=== PATIENT | female | born 1970 | race Caucasian/White ===

== ENCOUNTER 2020-06-24 11:05 | Outpatient (REF) | payer OTHER, SELFPAY ==
[2020-06-24 13:08] LABS: COVID-19 Test Negative (Negative)
== END 2020-06-24 11:06 | disposition home or self-care (01) ==
LOC: HO.LAB 11:05
PROVIDERS: Visit Provider Internal Medicine
DX: Z20.822 Contact with and (suspected) exposure to COVID-19 (principal)
CPT/HCPCS: 36415; 87635; C9803

== ENCOUNTER 2021-07-25 11:53 | Outpatient (REF) | payer OTHER, SELFPAY ==
--- NOTE | ~2021-07-25 | XR_ITS ---
EXAMINATION: XR CHEST CLINICAL INFORMATION: Cough. COMPARISON: Chest 02/04/2019. TECHNIQUE: Frontal view of the chest was obtained. FINDINGS: The lungs are expanded with elevated left hemidiaphragm. There is plate-like atelectasis in the lingula. Rest of the lungs are clear. Heart size and pulmonary vascularity is normal. There is mild spondylosis of dorsal spine. No lytic process seen. XR/XR chest 1V IMPRESSION: Lingular atelectasis. No acute process seen.
[2021-07-25 12:20] LABS: MANUAL DIFF FLAG NO
[2021-07-25 12:36] LABS: Basophils Percent Auto 0.3 % (0-2); Eosinophils Absolute Auto 0.1 X10*3/uL (0.0-0.4); Eosinophils Percent Auto 1.4 % (0-4); Hemoglobin 16.4 g/dl (12.0-16.0); Imm Gran Abs Auto 0.02 X10*3/uL (0.00-0.03); Imm Gran Pct Auto 0.3 % (0.0-0.4); Lymphocytes Absolute Auto 2.4 X10*3/uL (1.2-4.9); Lymphocytes Percent Auto 35.6 % (20-40); Mean Corpuscular HGB Conc 33.5 g/dl (31.0-35.0); Mean Corpuscular Hemoglobin 28.5 pg (27.0-33.0); Mean Corpuscular Volume 85.1 fL (80.0-98.0); Mean Platelet Volume 10.7 fL (9.4-12.3); Monocytes Absolute Auto 0.3 X10*3/uL (0.1-1.2); Monocytes Percent Auto 4.8 % (2-11); Neutrophils Absolute Auto 3.8 x10*3/uL (2.0-8.3); Neutrophils Percent Auto 57.6 % (45-73); Platelet Count 220 X10*3/uL (160-400); Red Blood Count 5.76 X10*6/uL (4.20-5.50); White Blood Count 6.7 X10*3/uL (4.8-10.8)
[2021-07-25 13:07] LABS: Alanine Aminotransferase 29 U/L (0-31); Albumin Level 4.4 g/dL (3.5-5.0); Alkaline Phosphatase 111 U/L (39-117); Anion Gap 17 (12-20); Aspartate Amino Transferase 20 U/L (5-31); Bilirubin Total 0.3 mg/dL (0.0-1.0); Blood Urea Nitrogen 11 mg/dL (9-16); C Reactive Protein 0.54 mg/dL (< or = 0.50); Calcium 10.3 mg/dL (8.4-10.2); Carbon Dioxide 21 mmol/L (22-29); Chloride 105 mmol/L (96-108); Estimated Glomerular Filt Rate > 60; Glucose Random 94 mg/dL (60-115); Potassium 4.7 mmol/L (3.3-5.1); Sodium 138 mmol/L (135-145); Total Protein 8.1 g/dL (6.5-8.0)
[2021-07-25 13:26] LABS: Erythrocyte Sedimentation Rate 10 MM/HR (0-20)
== END 2021-07-25 11:54 | disposition home or self-care (01) ==
LOC: HO.XRAY 11:53
PROVIDERS: PCP Physician Assistant; Visit Provider Nurse Practitioner Acute Care
DX: R05.9 Cough, unspecified (principal); R68.89 Other general symptoms and signs
CPT/HCPCS: 36415; 71045; 80053; 85025; 85652; 86140

== ENCOUNTER → 2021-08-18 12:23 | Outpatient (BNVA) | payer OTHER, SELFPAY | PROVIDERS: PCP Physician Assistant; Visit Provider Internal Medicine Pulmonary Disease | DX: R05.3 Chronic cough (principal); R06.00 Dyspnea, unspecified; R93.89 Abnormal findings on diagnostic imaging of other specified body structures; J30.9 Allergic rhinitis, unspecified | CPT/HCPCS: 99202 ==

== ENCOUNTER → 2021-08-29 14:57 | Outpatient (REF) | payer OTHER, SELFPAY | LOC: HO.SL 14:57 | PROVIDERS: PCP Physician Assistant; Visit Provider Physician Assistant | DX: G47.33 Obstructive sleep apnea (adult) (pediatric) (principal) | CPT/HCPCS: 95806 ==

== ENCOUNTER 2021-10-13 10:39 | Emergency (ER) | payer OTHER, SELFPAY ==
--- NOTE | ~2021-10-13 | CT_ITS ---
EXAMINATION: NONCONTRAST HEAD CT NONCONTRAST MAXILLOFACIAL CT NONCONTRAST CERVICAL SPINE CT INDICATION INFORMATION: Syncope. COMPARISON: No similar priors. TECHNIQUE: Separate noncontrast CT examinations of the head, maxillofacial bones, and cervical spine were performed. Coronal and sagittal images were created for each examination at the technologist workstation. This CT examination was performed using dose optimization techniques as appropriate, variously including the following: *Automated exposure control *Adjustment of mA and/or kV according to patient size (this includes techniques or standardized protocols for targeted exams where dose is matched to indication/reason for exam; i.e. extremities or head) *Use of iterative reconstruction technique DLP: 706, 433 and 312 mGy-cm FINDINGS: Head: There is no evidence of acute intracranial hemorrhage or territorial infarction. No abnormal mass effect or midline shift is seen. [place] to white matter differentiation is well preserved. No extra-axial fluid collections are identified. No hydrocephalus. No significant volume loss. There is no abnormal attenuation within the brain parenchyma. Small right frontal scalp hematoma. No calvarial fracture. The mastoid air cells are well aerated. Maxillofacial: No acute maxillofacial fractures are seen. Mucus retention cysts in the inferior left maxillary sinus and left frontal sinus. No air-fluid level. The mandibular heads are well-seated in the condylar fossa. The orbits demonstrate a normal appearance bilaterally. The globes are intact, and there are no suspicious findings to suggest retrobulbar hemorrhage. Cervical spine: There is mild likely degenerative anterolisthesis of C2 on C3 and C4 on C5. The atlantoaxial and atlantooccipital articulations are intact. There is multilevel cervical spondylosis with more robust facet arthropathy on the left side at the level of C4-C5. There is asymmetric widening of the left transverse process at the level of C4 (5:181) likely congenital. No evidence of acute fracture. No prevertebral soft tissue swelling. Evaluation of the lungs is limited due to motion, however there appears to be multifocal groundglass attenuation of the parenchyma. Normal appearance of the thyroid gland. Nonspecific fairly symmetric bilateral enlarged cervical lymph nodes, likely reactive. CT/CT cervical spine wo con IMPRESSION: 1. Small right frontal scalp hematoma. No acute intracranial abnormality. 2. No acute maxillofacial fracture. 3. No acute cervical spine fracture or malalignment. 4. Query multifocal hazy attenuation of the lungs, which are suboptimally assessed due to motion. Recommend correlation with a chest radiograph if clinically deemed appropriate.
--- NOTE | ~2021-10-13 | XR_ITS ---
EXAMINATION: XR CHEST CLINICAL INFORMATION: Chest pain COMPARISON: 07/25/2021 TECHNIQUE: Frontal view of the chest was obtained. FINDINGS: The lungs are well expanded. Blunting at the left costophrenic angle noted, similar to the previous study. Given the chronicity of the finding this likely represents pleural thickening. No consolidation or edema. No pneumothorax. The cardiomediastinal silhouette is within normal limits. No acute osseous abnormality. XR/XR chest 1V IMPRESSION: Chronic blunting at the left costophrenic angle. This is likely pleural thickening. No acute pulmonary finding.
[2021-10-13 10:42] VITALS: BP 156/93; PULSE 108; RESP 18; TEMP 36.8; O2SAT 95; BMI 29.2
--- NOTE | 2021-10-13 10:45 | ECG_ITS ---
Test Reason : cp/?syncope Blood Pressure : / mmHG Vent. Rate : 091 BPM Atrial Rate : 091 BPM P-R Int : 150 ms QRS Dur : 082 ms QT Int : 342 ms P-R-T Axes : 019 016 038 degrees QTc Int : 420 ms Normal sinus rhythm Normal ECG When compared with ECG of 11-SEP-2018 20:54, No significant change was found Referred By: Generic ED Physician Electronically Signed By:JOANNA GARCIA
[2021-10-13] MEDS: Acetaminophen 325 MG TABLET 650 MG PO (10:47)
[2021-10-13 11:12] LABS: Hematocrit 43.7 % (37.0-47.0); Hemoglobin 15.3 g/dl (12.0-16.0); Mean Corpuscular Volume 91.4 fL (80.0-98.0); Platelet Count 309 X10*3/uL (160-400); Red Blood Count 4.78 X10*6/uL (4.20-5.50); Red Cell Distribution Width 13.1 % (11.0-16.0); White Blood Count 11.6 X10*3/uL (4.8-10.8)
[2021-10-13 11:29] LABS: Anion Gap 16 (12-20); Blood Urea Nitrogen 21 mg/dL (9-16); Calcium 9.3 mg/dL (8.4-10.2); Carbon Dioxide 24 mmol/L (22-29); Chloride 102 mmol/L (96-108); Creatinine Clr Calc Pharmacy 49.7; Estimated Glomerular Filt Rate 47; Glucose Random 151 mg/dL (60-115); Potassium 4.1 mmol/L (3.3-5.1); Sodium 138 mmol/L (135-145)
[2021-10-13 11:37] LABS: B Type Natriuretic Peptide 14 pg/mL (<100); Troponin-I High Sensitivity 6.5 ng/L (<3.5-17.0)
--- NOTE | 2021-10-13 13:12 | ED_ITS ---
HPI - Chest Pain General Chief Complaint: Chest Pain Stated Complaint: collapsed after work Time Seen by Provider: 10/13/21 11:03 Source: patient Mode of arrival: ambulatory History of Present Illness HPI narrative: 51-year-old female presents with complaints of an unwitnessed syncopal episode that she states occurred as she was leaving work this morning. 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 She states that when she woke she felt dizzy and was a little bit nauseous. Patient does endorse that she drinks alcohol and uses IV drugs as well as marijuana. Otherwise, she denies any heart palpitations, shortness of breath prior to passing out Related Data Previous Rx's Medication Instructions Recorded pantoprazole 40 mg tablet,delayed 40 mg PO DAILY 90 days #90 tabs 07/18/21 release gabapentin 600 mg tablet 600 mg PO TID 30 days #90 tabs 07/20/21 cetirizine 10 mg tablet 10 mg PO DAILY #90 tabs 08/10/21 nicotine 21 mg/24 hr daily 1 patch transdermal DAILY 14 days 08/10/21 transdermal patch #14 ea fluticasone propionate 50 1 spray intranasal BID #16 grams 08/23/21 mcg/actuation nasal spray,suspension (Flonase Allergy Relief) miscellaneous medical supply 1 ea miscellaneous .nightly 99 09/07/21 days #1 ea CPAP (CPAP Machine/Device) #1 ea 10/10/21 Allergies Allergy/AdvReac Type Severity Reaction Status Date / Time No Known Allergies Allergy Verified 08/18/21 12:57 [No Known Allergies*] Review of Systems Review of Systems: Pertinent positives and negatives as stated in HPI 10 point review of systems is otherwise negative. [facility] Past Medical History Source: nursing notes reviewed Medical History Anxiety GERD (gastroesophageal reflux disease) History of heroin use Surgical History No pertinent past surgical history Family History Family History Father Asthma Diabetes Hypertension CHF (congestive heart failure) Substance use disorder Mother No problems noted. Paternal Grandfather Substance use disorder Family/Other Substance use disorder Other Mental health disorder Social History Social History Housing: Apartment Alcohol intake: never Patient Tobacco Use Status: Current everyday Tobacco user Tobacco use type: Cigarette Cigarettes Per Day: 5 e-Cigarette/Vaping Use: Currently Using Advance Directives: Yes Advance Directives Information Provided: Yes Advance Directives on File: No service: No Current occupational status: employed Cognitive needs: No Hearing needs: No Vision needs: Yes Physical Exam Vital Signs: Vital Signs: Last Vital Signs Temp 98.2 F 10/13/21 10:42 Pulse 83 10/13/21 16:41 Resp 18 10/13/21 16:41 BP 151/80 H 10/13/21 16:41 Pulse Ox 95 10/13/21 16:41 O2 Del Method 10/13/21 16:41 BMI result Body Mass Index 29.2 VITAL SIGNS: Reviewed. GENERAL: Well developed, well nourished, in no acute distress. HEAD: Normocephalic/contusion to right forehead and right infraorbital EYES: PERRLA, EOMI without palsies EARS: Ext canals without abnormality, TMs non-bulging and non-erythematous NOSE: Nares patent bilateral OROPHARYNX: no oral lesions noted, posterior pharynx clear and non-erythematous without noted tonsillar enlargement/erythema/exudates NECK: Supple, no adenopathy LUNGS: Normal breath sounds. No adventitious sounds or accessory muscle use. SpO2<95> CARDIOVASCULAR: Regular rate and rhythm without noted murmurs, no JVD or lower extremity edema. ABDOMEN: Soft, non-tender, non-distended with bowel sounds. MUSCULOSKELETAL: No tenderness, deformities, or effusions noted on gross inspec tion. EXTREMITIES: No cyanosis, clubbing or edema. SKIN: Inspection of the skin reveals no rashes, stigmata of IV drug use NEUROLOGIC: Alert and oriented x 4. Strength and sensation to light touch were grossly intact x 4. Course Course Course Narrative: 31-year-old female with history and clinical presentation consistent with unwitnessed syncopal episode. On review of all investigations serial troponins are flat, there are no acute EKG changes, no evidence of infection or anemias (the leukocytosis is felt to be reactive in nature). All imaging is negative for acute findings. Suspect that patient's ?syncopal episode? may have been associated with volume status or possible drug related. Otherwise patient has remained hemodynamically stable throughout and is otherwise stable for discharge to home. MDM - Chest Pain Lab Data Result diagrams: 10/13/21 10:56 10/13/21 10:56 Labs: Lab Results 10/13/21 10/13/21 10/13/21 Range/Units 10:56 10:56 10:56 WBC 11.6 H (4.8-10.8) X10*3/uL RBC 4.78 (4.20-5.50) X10*6/uL Hgb 15.3 (12.0-16.0) g/dl Hct 43.7 (37.0-47.0) % MCV 91.4 (80.0-98.0) fL MCH 32.0 (27.0-33.0) pg MCHC 35.0 (31.0-35.0) g/dl RDW 13.1 (11.0-16.0) % Plt Count 309 D (160-400) X10*3/uL MPV 10.0 (9.4-12.3) fL Absolute Nucleated RBC 0.000 (0.0-0.012) X10*3/uL Nucleated RBC % (auto) 0.0 (0.0-0.2) /100WBC D-Dimer High Sensitivty NG/ML Sodium 138 (135-145) mmol/L Potassium 4.1 (3.3-5.1) mmol/L Chloride 102 (96-108) mmol/L Carbon Dioxide 24 (22-29) mmol/L Anion Gap 16 (12-20) BUN 21 H D (9-16) mg/dL Creatinine 1.20 (0.5-1.4) mg/dL Estim Creat Clear Calc 49.7 Estimated GFR 47 Random Glucose 151 H (60-115) mg/dL Calcium 9.3 D (8.4-10.2) mg/dL Troponin I High Sens 6.5 (<3.5-17.0) ng/L B-Natriuretic Peptide 14 (<100) pg/mL 10/13/21 10/13/21 Range/Units 12:36 15:50 WBC (4.8-10.8) X10*3/uL RBC (4.20-5.50) X10*6/uL Hgb (12.0-16.0) g/dl Hct (37.0-47.0) % MCV (80.0-98.0) fL MCH (27.0-33.0) pg MCHC (31.0-35.0) g/dl RDW (11.0-16.0) % Plt Count (160-400) X10*3/uL MPV (9.4-12.3) fL Absolute Nucleated RBC (0.0-0.012) X10*3/uL Nucleated RBC % (auto) (0.0-0.2) /100WBC D-Dimer High Sensitivty < 150 NG/ML Sodium (135-145) mmol/L Potassium (3.3-5.1) mmol/L Chloride (96-108) mmol/L Carbon Dioxide (22-29) mmol/L Anion Gap (12-20) BUN (9-16) mg/dL Creatinine (0.5-1.4) mg/dL Estim Creat Clear Calc Estimated GFR Random Glucose (60-115) mg/dL Calcium (8.4-10.2) mg/dL Troponin I High Sens 8.3 (<3.5-17.0) ng/L B-Natriuretic Peptide (<100) pg/mL ECG Data ECG #1: Attestation: I personally reviewed and interpreted this ECG as follows: Prior ECG tracings: available for review Interpretation: Normal sinus rhythm, HR-91, no STEMI, WA/QRS/QTC are within normal limits. Discharge Plan Discharge Clinical Impression: Episode of syncope, Active intravenous drug use, Scalp contusion, Contusion of face Patient Disposition: Home, Self-Care Instructions: Syncope (ED), Heat Exhaustion (ED) Additional Instructions: 1. Resume all home medications as prescribed. Increase your fluid hydration, especially with water. 2. Follow-up with your primary care provider in the next 2-3 days. Return to the ER for worsening symptoms. Prescriptions: No Action pantoprazole 40 mg tablet,delayed release (DR/EC) 40 mg PO DAILY 90 Days Qty: 90 3RF fluticasone propionate [Flonase Allergy Relief] 50 mcg/actuation spray,suspension 1 spray intranasal BID Qty: 16 2RF Rx Instructions: administer into each nostril miscellaneous medical supply Misc 1 ea miscellaneous .nightly 99 Days Qty: 1 0RF (DME) CPAP Machine/Device Device See Rx Instructions .Route Qty: 1 0RF Rx Instructions: As directed cetirizine 10 mg tablet 10 mg PO DAILY Qty: 90 1RF nicotine 21 mg/24 hr patch 24 hour 1 patch transdermal DAILY 14 Days Qty: 14 0RF gabapentin 600 mg tablet 600 mg PO TID 30 Days Qty: 90 3RF Referrals: Abhijit Ibarra PA-C [Primary Care Provider] -
[2021-10-13 13:15] LABS: D Dimer High Sensitivity < 150 NG/ML
[2021-10-13 16:31] LABS: Troponin-I High Sensitivity 8.3 ng/L (<3.5-17.0)
[2021-10-13 16:41] VITALS: BP 151/80; PULSE 83; RESP 18; O2SAT 95
== END 2021-10-13 17:01 | disposition home or self-care (01) ==
PROVIDERS: Emergency Provider Student in an Organized Health Care Education/Training Program; PCP Physician Assistant
DX: R55 Syncope and collapse (principal); F19.90 Other psychoactive substance use, unspecified, uncomplicated; S00.03XA Contusion of scalp, initial encounter; S00.83XA Contusion of other part of head, initial encounter; W17.89XA Other fall from one level to another, initial encounter; F17.210 Nicotine dependence, cigarettes, uncomplicated; E66.9 Obesity, unspecified; Z68.29 Body mass index [BMI] 29.0-29.9, adult; Z79.899 Other long term (current) drug therapy; Y93.89 Activity, other specified; Y92.019 Unspecified place in single-family (private) house as the place of occurrence of the external cause; Y99.9 Unspecified external cause status
CPT/HCPCS: 36415; 70450; 70486; 71045; 72125; 80048; 83880; 84484; 85027; 85379; 93005; 99284; 99285

== ENCOUNTER 2021-12-25 09:34 | Emergency (ER) | payer OTHER, SELFPAY ==
--- NOTE | ~2021-12-25 | XR_ITS ---
EXAMINATION: XR CHEST CLINICAL INFORMATION: Pain COMPARISON: Previous chest x-ray most recent September 2021 TECHNIQUE: Frontal view of the chest was obtained. FINDINGS: No significant abnormality is noted involving the heart, lungs, mediastinum, bony thorax or soft tissues. There is slight blunting at the left lateral costophrenic angle unchanged from old exams. XR/XR chest 1V IMPRESSION: No evidence for acute disease in the chest.
[2021-12-25 09:49] VITALS: BP 160/86; PULSE 78; RESP 16; TEMP 36.9; O2SAT 98; BMI 24.0
--- NOTE | 2021-12-25 11:21 | ECG_ITS ---
Test Reason : CP Blood Pressure : / mmHG Vent. Rate : 077 BPM Atrial Rate : 077 BPM P-R Int : 194 ms QRS Dur : 078 ms QT Int : 360 ms P-R-T Axes : 038 026 028 degrees QTc Int : 407 ms Normal sinus rhythm Normal ECG When compared with ECG of 13-OCT-2021 10:47, No significant change was found Referred By: Generic ED Physician Electronically Signed By:DANIEL RIVERA MD
[2021-12-25 12:22] LABS: COVID-19 Test Negative (Negative); IDNOW Serial# 16C4AD1C
--- NOTE | 2021-12-25 14:16 | ED_ITS ---
HPI - Chest Pain General Chief Complaint: Chest Pain Stated Complaint: chest pain Time Seen by Provider: 12/25/21 14:01 Source: patient Mode of arrival: ambulatory History of Present Illness HPI narrative: 51-year-old female who reports remote history polysubstance use presents with complaints of sharp chest pain that is noted at the left anterior chest and she denies any traumatic event preceding this. She also denies any fever, chills, cough, sore throat, recent travel and denies any association with deep inspiration but states that it does change with movement. Otherwise, she denies any or GI symptoms. Related Data Previous Rx's Medication Instructions Recorded pantoprazole 40 mg tablet,delayed 40 mg PO DAILY 90 days #90 tabs 07/18/21 release cetirizine 10 mg tablet 10 mg PO DAILY #90 tabs 08/10/21 nicotine 21 mg/24 hr daily 1 patch transdermal DAILY 14 days 08/10/21 transdermal patch #14 ea fluticasone propionate 50 1 spray intranasal BID #16 grams 08/23/21 mcg/actuation nasal spray,suspension (Flonase Allergy Relief) miscellaneous medical supply 1 ea miscellaneous .nightly 99 09/07/21 days #1 ea CPAP (CPAP Machine/Device) #1 ea 10/10/21 gabapentin 600 mg tablet 600 mg PO TID 30 days #90 tabs 11/06/21 Allergies Allergy/AdvReac Type Severity Reaction Status Date / Time No Known Allergies Allergy Verified 08/18/21 12:57 [No Known Allergies*] Review of Systems Review of Systems: Pertinent positives and negatives as stated in HPI 10 point review of systems is otherwise negative. [facility] Past Medical History Source: nursing notes reviewed Medical History Anxiety GERD (gastroesophageal reflux disease) History of heroin use Surgical History No pertinent past surgical history Family History Family History Father Asthma Diabetes Hypertension CHF (congestive heart failure) Substance use disorder Mother No problems noted. Paternal Grandfather Substance use disorder Family/Other Substance use disorder Other Mental health disorder Social History Social History Housing: Apartment Alcohol intake: never Patient Tobacco Use Status: Current everyday Tobacco user Tobacco use type: Cigarette Cigarettes Per Day: 5 e-Cigarette/Vaping Use: Currently Using Advance Directives: No Advance Directives Information Provided: Yes service: No Current occupational status: employed Cognitive needs: No Hearing needs: No Vision needs: Yes Physical Exam Vital Signs: Vital Signs: Last Vital Signs Temp 98.3 F 12/25/21 16:00 Pulse 68 12/25/21 16:00 Resp 16 12/25/21 16:00 BP 105/56 L 12/25/21 16:00 Pulse Ox 95 12/25/21 16:00 O2 Del Method 12/25/21 16:00 BMI result Body Mass Index 24.0 VITAL SIGNS: Reviewed. GENERAL: Well developed, well nourished, in no acute distress. HEAD: Normocephalic/atraumatic EYES: PERRLA, EOMI EARS: Ext canals without abnormality, TMs non-bulging and non-erythematous NOSE: Nares patent bilateral OROPHARYNX: no oral lesions noted, posterior pharynx clear NECK: Supple, no adenopathy LUNGS: Normal breath sounds. No adventitious sounds or accessory muscle use. SpO2<98> CARDIOVASCULAR: Regular rate and rhythm without noted murmurs, no JVD or lower extremity edema. ABDOMEN: Soft, non-tender, non-distended with bowel sounds. MUSCULOSKELETAL: No tenderness, deformities, or effusions noted on gross inspection. EXTREMITIES: No cyanosis, clubbing or edema. SKIN: Inspection of the skin reveals no rashes NEUROLOGIC: Alert and oriented x 4. Strength and sensation to light touch were grossly intact x 4. Course Course Course Narrative: 51-year-old female with history and clinical presentation suggestive possible costochondritis verses acid reflux and lower clinical suspicion for cardiopulmonary etiology. Patient refused GI cocktail. Review of all investigations otherwise negative for acute findings, specifically the troponin is negative and there are no acute EKG changes and the D-dimer is also negative. Chest x-ray does not show any acute pathology to suggest pneumonia and patient was otherwise discharged home in stable condition with presumptive atypical chest pain likely costochondritis in nature. MDM - Chest Pain Lab Data Result diagrams: 12/25/21 15:49 12/25/21 15:49 Labs: Lab Results 12/25/21 12/25/21 12/25/21 Range/Units 12:01 14:57 15:49 WBC (4.8-10.8) X10*3/uL RBC (4.20-5.50) X10*6/uL Hgb (12.0-16.0) g/dl Hct (37.0-47.0) % MCV (80.0-98.0) fL MCH (27.0-33.0) pg MCHC (31.0-35.0) g/dl RDW (11.0-16.0) % Plt Count (160-400) X10*3/uL MPV (9.4-12.3) fL Immature Gran % (Auto) (0.0-0.4) % Neut % (Auto) (45-73) % Lymph % (Auto) (20-40) % [place] % (Auto) (2-11) % Eos % (Auto) (0-4) % Baso % (Auto) (0-2) % Lymph # (Auto) (1.2-4.9) X10*3/uL [place] # (Auto) (0.1-1.2) X10*3/uL Eos # (Auto) (0.0-0.4) X10*3/uL Baso # (Auto) (0.0-0.2) X10*3/uL Abs Immat Gran (auto) (0.00-0.03) X10*3/uL Absolute Neuts (auto) (2.0-8.3) x10*3/uL Absolute Nucleated RBC (0.0-0.012) X10*3/uL Nucleated RBC % (auto) (0.0-0.2) /100WBC D-Dimer High Sensitivty NG/ML Sodium 143 (135-145) mmol/L Potassium 4.3 (3.3-5.1) mmol/L Chloride 105 (96-108) mmol/L Carbon Dioxide 28 (22-29) mmol/L Anion Gap 14 (12-20) BUN 13 (9-16) mg/dL Creatinine 0.96 (0.5-1.4) mg/dL Estim Creat Clear Calc 59.8 Estimated GFR > 60 Random Glucose 112 (60-115) mg/dL Calcium 9.2 (8.4-10.2) mg/dL Troponin I High Sens < 3.5 D (<3.5-17.0) ng/L COVID-19 (ANN) Negative (Negative) COVID-19 Clin Com See Note 12/25/21 12/25/21 12/25/21 Range/Units 15:49 15:49 15:49 WBC 7.8 (4.8-10.8) X10*3/uL RBC 4.57 (4.20-5.50) X10*6/uL Hgb 14.1 (12.0-16.0) g/dl Hct 40.5 (37.0-47.0) % MCV 88.6 (80.0-98.0) fL MCH 30.9 (27.0-33.0) pg MCHC 34.8 (31.0-35.0) g/dl RDW 12.4 (11.0-16.0) % Plt Count 259 (160-400) X10*3/uL MPV 10.3 (9.4-12.3) fL Immature Gran % (Auto) 0.3 (0.0-0.4) % Neut % (Auto) 54.1 (45-73) % Lymph % (Auto) 38.4 (20-40) % [place] % (Auto) 4.4 (2-11) % Eos % (Auto) 2.3 (0-4) % Baso % (Auto) 0.5 (0-2) % Lymph # (Auto) 3.0 (1.2-4.9) X10*3/uL [place] # (Auto) 0.3 (0.1-1.2) X10*3/uL Eos # (Auto) 0.2 (0.0-0.4) X10*3/uL Baso # (Auto) 0.0 (0.0-0.2) X10*3/uL Abs Immat Gran (auto) 0.02 (0.00-0.03) X10*3/uL Absolute Neuts (auto) 4.2 (2.0-8.3) x10*3/uL Absolute Nucleated RBC 0.000 (0.0-0.012) X10*3/uL Nucleated RBC % (auto) 0.0 (0.0-0.2) /100WBC D-Dimer High Sensitivty < 150 NG/ML Sodium 142 (135-145) mmol/L Potassium 4.3 (3.3-5.1) mmol/L Chloride 105 (96-108) mmol/L Carbon Dioxide 26 (22-29) mmol/L Anion Gap 15 (12-20) BUN 13 (9-16) mg/dL Creatinine 0.87 (0.5-1.4) mg/dL Estim Creat Clear Calc 66.0 Estimated GFR > 60 Random Glucose 95 (60-115) mg/dL Calcium 9.1 (8.4-10.2) mg/dL Troponin I High Sens (<3.5-17.0) ng/L COVID-19 (ANN) (Negative) COVID-19 Clin Com Discharge Plan Discharge Clinical Impression: Atypical chest pain, Costochondritis Patient Disposition: Home, Self-Care Instructions: Costochondritis (ED) Additional Instructions: 1. Resume all home medications as prescribed. 2. Recommend [id number] Tylenol/ ibuprofen as needed for pain control, you may consider a lidocaine patch for additional symptom relief. 3. Follow-up with your primary care provider in the next 1-2 days for re- evaluation. Return to the ER for worsening symptoms. Prescriptions: No Action pantoprazole 40 mg tablet,delayed release (DR/EC) 40 mg PO DAILY 90 Days Qty: 90 3RF fluticasone propionate [Flonase Allergy Relief] 50 mcg/actuation spray,suspension 1 spray intranasal BID Qty: 16 2RF Rx Instructions: administer into each nostril miscellaneous medical supply Misc 1 ea miscellaneous .nightly 99 Days Qty: 1 0RF (DME) CPAP Machine/Device Device See Rx Instructions .Route Qty: 1 0RF Rx Instructions: As directed gabapentin 600 mg tablet 600 mg PO TID 30 Days Qty: 90 3RF cetirizine 10 mg tablet 10 mg PO DAILY Qty: 90 1RF nicotine 21 mg/24 hr patch 24 hour 1 patch transdermal DAILY 14 Days Qty: 14 0RF Referrals: Abhijit Ibarra PA-C [Primary Care Provider] -
[2021-12-25 15:11] VITALS: BP 114/78; PULSE 70; RESP 16; O2SAT 96
[2021-12-25 15:15] LABS: Anion Gap 14 (12-20); Blood Urea Nitrogen 13 mg/dL (9-16); Calcium 9.2 mg/dL (8.4-10.2); Carbon Dioxide 28 mmol/L (22-29); Chloride 105 mmol/L (96-108); Creatinine Clr Calc Pharmacy 59.8; Estimated Glomerular Filt Rate > 60; Glucose Random 112 mg/dL (60-115); Potassium 4.3 mmol/L (3.3-5.1); Sodium 143 mmol/L (135-145)
[2021-12-25] MEDS: Acetaminophen 325 MG TABLET 975 MG PO (15:18)
[2021-12-25] MEDS: Ketorolac Tromethamine 15 MG/ML VIAL IM (15:18)
[2021-12-25 15:56] LABS: MANUAL DIFF FLAG NO
[2021-12-25 15:58] LABS: Basophils Percent Auto 0.5 % (0-2); Eosinophils Absolute Auto 0.2 X10*3/uL (0.0-0.4); Eosinophils Percent Auto 2.3 % (0-4); Hematocrit 40.5 % (37.0-47.0); Hemoglobin 14.1 g/dl (12.0-16.0); Imm Gran Abs Auto 0.02 X10*3/uL (0.00-0.03); Imm Gran Pct Auto 0.3 % (0.0-0.4); Lymphocytes Percent Auto 38.4 % (20-40); Mean Corpuscular HGB Conc 34.8 g/dl (31.0-35.0); Mean Corpuscular Hemoglobin 30.9 pg (27.0-33.0); Mean Corpuscular Volume 88.6 fL (80.0-98.0); Mean Platelet Volume 10.3 fL (9.4-12.3); Monocytes Absolute Auto 0.3 X10*3/uL (0.1-1.2); Monocytes Percent Auto 4.4 % (2-11); Neutrophils Absolute Auto 4.2 x10*3/uL (2.0-8.3); Neutrophils Percent Auto 54.1 % (45-73); Platelet Count 259 X10*3/uL (160-400); Red Blood Count 4.57 X10*6/uL (4.20-5.50); Red Cell Distribution Width 12.4 % (11.0-16.0); White Blood Count 7.8 X10*3/uL (4.8-10.8)
[2021-12-25 16:00] VITALS: BP 105/56; PULSE 68; RESP 16; TEMP 36.8; O2SAT 95
[2021-12-25 16:07] LABS: D Dimer High Sensitivity < 150 NG/ML
[2021-12-25 16:10] LABS: Anion Gap 15 (12-20); Blood Urea Nitrogen 13 mg/dL (9-16); Calcium 9.1 mg/dL (8.4-10.2); Carbon Dioxide 26 mmol/L (22-29); Chloride 105 mmol/L (96-108); Estimated Glomerular Filt Rate > 60; Glucose Random 95 mg/dL (60-115); Potassium 4.3 mmol/L (3.3-5.1); Sodium 142 mmol/L (135-145)
[2021-12-25 16:17] LABS: Troponin-I High Sensitivity < 3.5 ng/L (<3.5-17.0)
== END 2021-12-25 16:59 | disposition home or self-care (01) ==
PROVIDERS: Emergency Provider Student in an Organized Health Care Education/Training Program; PCP Physician Assistant
DX: R07.89 Other chest pain (principal); M94.0 Chondrocostal junction syndrome [Tietze]; Z20.822 Contact with and (suspected) exposure to COVID-19; F17.210 Nicotine dependence, cigarettes, uncomplicated; F19.10 Other psychoactive substance abuse, uncomplicated
CPT/HCPCS: 36415; 71045; 80048; 84484; 85025; 85379; 87635; 93005; 96372; 99284; J1885

== ENCOUNTER → 2022-01-15 08:47 | Outpatient (REF) | payer OTHER, SELFPAY | LOC: HO.CARD 08:47 | PROVIDERS: PCP Physician Assistant; Visit Provider Physician Assistant | DX: Z13.89 Encounter for screening for other disorder (principal) ==

== ENCOUNTER 2022-02-12 10:53 | Outpatient (REF) | payer OTHER, SELFPAY ==
[2022-02-12 14:59] LABS: Influenza A PCR NEGATIVE (Negative); Influenza B PCR NEGATIVE (Negative); Resp Syncy Virus RNA Qual PCR NEGATIVE (Negative); SARS COV2 PCR INHOUSE NEGATIVE (Negative)
== END 2022-02-12 10:54 | disposition home or self-care (01) ==
LOC: HO.LAB 10:53
PROVIDERS: Visit Provider Internal Medicine
DX: R09.89 Other specified symptoms and signs involving the circulatory and respiratory systems (principal); F41.1 Generalized anxiety disorder; Z20.822 Contact with and (suspected) exposure to COVID-19
CPT/HCPCS: 0241U

== ENCOUNTER 2022-02-27 12:32 | Emergency (ER) | payer OTHER, SELFPAY ==
[2022-02-27 12:39] VITALS: BP 180/105; PULSE 100; O2SAT 95
[2022-02-27 12:55] VITALS: BP 159/97; PULSE 92; RESP 16; TEMP 36.1; O2SAT 95; BMI 29.2
--- NOTE | 2022-02-27 12:57 | ED_ITS ---
HPI - Overdose General Chief Complaint: Overdose Stated Complaint: OPIOID OD,NARCAN GIVEN W/GOOD RESULT PER EMS Time Seen by Provider: 02/27/22 12:57 Source: patient and EMS Mode of arrival: EMS History of Present Illness HPI Narrative: 51-year-old female with a past medical history of anxiety, GERD, substance abuse presenting to the ED via EMS s/p being found unresponsive/slumped over in car [employer], given intranasal Narcan by EMS with positive result. Patient admits to snorting 3 bags of heroin. Admits also using cocaine today & drinking a Bloody Riya. States she relapsed after being clean for 3 years. Denies SI/HI. Denies known injury, trauma, fall, headache, CP/SOB, abdominal pain MD complaint: accidental overdose Onset (ago): minute(s) Related Data Previous Rx's Medication Instructions Recorded miscellaneous medical supply 1 ea miscellaneous .nightly 99 09/07/21 days #1 ea CPAP (CPAP Machine/Device) #1 ea 10/10/21 gabapentin 600 mg tablet 600 mg PO TID 30 days #90 tabs 12/28/21 amitriptyline 10 mg tablet 10 mg PO BEDTIME #30 tabs 01/08/22 plwruyczol-ljnrzniurzkht-cccqtexu 1 tab PO ONCE pain 7 days #7 tabs 01/08/22 50 mg-325 mg-40 mg tablet cetirizine 10 mg tablet 10 mg PO DAILY #90 tabs 01/08/22 fluticasone propionate 50 1 spray intranasal BID #16 grams 01/08/22 mcg/actuation nasal spray,suspension (Flonase Allergy Relief) nicotine 21 mg/24 hr daily 1 patch transdermal DAILY 14 days 01/08/22 transdermal patch #14 ea pantoprazole 40 mg tablet,delayed 40 mg PO DAILY 90 days #90 tabs 01/08/22 release azithromycin 250 mg tablet See Rx Instructions PO .COMPLEX #6 02/12/22 tabs Allergies Allergy/AdvReac Type Severity Reaction Status Date / Time No Known Allergies Allergy Verified 02/12/22 10:04 [No Known Allergies*] Review of Systems Review of Systems: Constitutional: No Fever, No Chills, No Fatigue, No Malaise ENT/Mouth: No Ear Pain, No Nasal Congestion, No sore throat, No Rhinorrhea, No Swallowing Difficulty Eyes: No Eye Pain, No Swelling, No Redness, No Vision Changes Cardiovascular: No Chest Pain, No SOB, No Edema, No Palpitations Respiratory: No Cough, No Sputum, No Dyspnea Gastrointestinal: No Nausea, No Vomiting, No Diarrhea, No Constipation, No Abdominal pain Genitourinary: No irregular bleeding, No Dysuria, No Urinary Incontinence/retention, No Flank Pain Musculoskeletal: No joint pain, No Myalgias, No Joint Swelling Skin: No Skin Lesions, No rash Neuro: No Weakness, No Dizziness, No Headache Psych: No Anxiety/Panic, No Depression, No SI/HI/AH/VH, No Social Issues Yes all other systems are reviewed and are negative Constitutional: Constitutional: Reports as per [facility] Past Medical History Attestation statement: The following information was validated with the patient. Medical History Anxiety GERD (gastroesophageal reflux disease) History of heroin use Surgical History No pertinent past surgical history Family History Family History Father Asthma Diabetes Hypertension CHF (congestive heart failure) Substance use disorder Mother No problems noted. Paternal Grandfather Substance use disorder Family/Other Substance use disorder Other Mental health disorder Social History Social History Housing: Apartment Alcohol intake: never Patient Tobacco Use Status: Current everyday Tobacco user Tobacco use type: Cigarette Cigarettes Per Day: 5 e-Cigarette/Vaping Use: Currently Using Advance Directives: Yes Advance Directives Information Provided: Yes Advance Directives on File: No service: No Current occupational status: unemployed Cognitive needs: No Hearing needs: No Vision needs: Yes Physical Exam Vital Signs: Vital Signs: Last Vital Signs Temp 97 F 02/27/22 12:55 Pulse 92 02/27/22 12:55 Resp 16 02/27/22 12:55 BP 159/97 H 02/27/22 12:55 Pulse Ox 95 02/27/22 12:55 O2 Del Method 02/27/22 12:55 BMI result Body Mass Index 29.2 Const: Other: Appears under the influence, easily arousable General: cooperative and no acute distress Orientation/consciousness: patient oriented x3 HEENT: Head: Yes normal to inspection, Yes atraumatic, No Kuhn's sign and No raccoon eyes Ears: hearing grossly normal bilaterally General nose exam: Normal external nose present Face and sinus: Yes normal facial exam Throat: Yes posterior oropharynx normal Eyes: General: appearance normal, both eyes and all related structures Pupils: Equal, round and reactive pupils present EOM: EOMs intact bilaterally Neck: Neck: Yes normal visual inspection and Yes no meningeal signs Resp: Effort & Inspection: normal respiratory effort and no respiratory distress Auscultation: clear to auscultation bilaterally, no crackles and no wheezes Cardio: Rate: regular rate Heart sounds: S1 normal heart sound present and S2 normal heart sound present GI: Inspection: Yes normal to inspection Palpation (GI): Soft to palpation, nontender, no guarding and not rigid : General: Yes no CVA tenderness Back/Spine/Pelvis: Other: No midline thoracic/lumbar spinous tenderness/step-off or deformity Back: no CVA tenderness Skin: Rashes: no rashes Wounds: no wounds Neuro: General: patient oriented x3, gait normal, tone normal, moves all extremities and no meningeal signs Cranial nerves: Yes Equal, round and reactive pupils present Gait exam (Neuro): Normal gait present Extrem: General: Yes normal to inspection Psych: Thought content: suicidality and no homicidality Course Course Course Narrative: -recovery spoke with patient, she is not interested in going to detox, not interested in Suboxone -153--patient still appears under the influence, however awake/eating -tox screen positive for opiates, fentanyl, and cocaine -1643--patient awake and alert, talking on the phone, laughing. Safe for discharge at this time. Will discharge home with to go Narcan Medications Administered Discontinued Medications Generic Name Dose Route Start Last Admin Trade Name [place] PRN Reason Stop Dose Admin Acetaminophen 650 mg 02/27/22 15:14 02/27/22 15:53 Acetaminophen 325 Mg Tablet PO 02/27/22 15:15 650 mg ONCE ONE Administration Naloxone HCl 4 mg 02/27/22 14:20 02/27/22 15:55 Naloxone Hcl Nasal Take Home 4 Mg [place] NOSTRILALT 02/27/22 14:21 Not Given ONCE ONE Naloxone HCl 4 mg 02/27/22 14:47 02/27/22 15:55 Naloxone Hcl Nasal Take Home 4 Mg [place] NOSTRILALT 02/27/22 14:48 Not Given ONCE ONE Medical Decision Making Medical Decision Making MDM Narrative: 51-year-old female with a past medical history of anxiety, GERD, substance abuse presenting to the ED via EMS s/p being found unresponsive/slumped over in car [employer], given intranasal Narcan by EMS with positive result. On exam vital signs stable, NAD, appears under the influence however talkative an easily arousable. No evidence of trauma. Moving all extremities, ambulating with steady gait. Concern for accidental overdose. Plan: Drug screen, Sude, observe and re-evaluate for clinical sobriety Differential Diagnosis Differential Diagnoses: The differential diagnosis associated with the presentation includes Admission/Observation Consideration of admission/observation: Escalation of care including admission/observation considered Consult Healthcare Provider Management of the patient was discussed with: Behavioral Health Provider Lab Data Labs: Lab Results 02/27/22 Range/Units 15:57 Urine Opiates Screen POSITIVE H (Not Detect) Urine Fentanyl Screen POSITIVE H (Not Detect) Ur Barbiturates Screen Not Detected (Not Detect) Ur Phencyclidine Scrn Not Detected (Not Detect) Ur Amphetamines Screen Not Detected (Not Detect) U Benzodiazepines Scrn Not Detected (Not Detect) Urine Cocaine Screen POSITIVE H (Not Detect) U Marijuana (THC) Screen Not Detected (Not Detect) External Record Review External record reviewed: Office record, Outpatient record, Prior outpatient labs and Prior outpatient radiology Social Determinants Patient?s care significantly limited by Social Determinants of Health including: Alcoholism and drug addiction in family Discharge Plan Discharge Clinical Impression: Accidental overdose Patient Disposition: Home, Self-Care Instructions: Adult Overdose (ED) Additional Instructions: Your tox screen was positive for fentanyl, opiates, and cocaine Please avoid drug and alcohol use If you have thoughts of hurting herself or others return to the emergency department Prescriptions: No Action miscellaneous medical supply Misc 1 ea miscellaneous .nightly 99 Days Qty: 1 0RF (DME) CPAP Machine/Device Device See Rx Instructions .Route Qty: 1 0RF Rx Instructions: As directed gabapentin 600 mg tablet 600 mg PO TID 30 Days Qty: 90 3RF amitriptyline 10 mg tablet 10 mg PO BEDTIME Qty: 30 2RF occocpgbju-eeahehyiecdko-smog 50-325-40 mg tablet 1 tab PO ONCE 7 Days Qty: 7 0RF Rx Instructions: do not exceed 6 tabs per 24 hrs nicotine 21 mg/24 hr patch 24 hour 1 patch transdermal DAILY 14 Days Qty: 14 0RF fluticasone propionate [Flonase Allergy Relief] 50 mcg/actuation spray,suspension 1 spray intranasal BID Qty: 16 2RF Rx Instructions: administer into each nostril cetirizine 10 mg tablet 10 mg PO DAILY Qty: 90 1RF pantoprazole 40 mg tablet,delayed release (DR/EC) 40 mg PO DAILY 90 Days Qty: 90 3RF azithromycin 250 mg tablet See Rx Instructions PO .COMPLEX Qty: 6 0RF Rx Instructions: take 500 mg today (day 1), then 250 mg for 4 days (days 2-5) PO Referrals: [facility] [Provider Group]
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
[2022-02-27] MEDS: Acetaminophen 325 MG TABLET 650 MG PO (15:53)
[2022-02-27 16:16] LABS: Amphetamine Screen Urine Not Detected (Not Detect); Barbiturates, Urine Not Detected (Not Detect); Benzodiazepines Screen Urine Not Detected (Not Detect); Cannabinoid Screen Urine Not Detected (Not Detect); Cocaine Screen Urine POSITIVE (Not Detect); Fentanyl, urine POSITIVE (Not Detect); Opiate Screen Urine POSITIVE (Not Detect); Phencyclidine Screen Urine Not Detected (Not Detect)
[2022-02-27 17:04] VITALS: BP 116/67; PULSE 78; RESP 16; O2SAT 99
== END 2022-02-27 17:09 | disposition home or self-care (01) ==
PROVIDERS: Physician Assistant; Emergency Provider Emergency Medicine; PCP Physician Assistant
DX: T40.1X1A Poisoning by heroin, accidental (unintentional), initial encounter (principal); Y92.9 Unspecified place or not applicable; F17.210 Nicotine dependence, cigarettes, uncomplicated; Z71.6 Tobacco abuse counseling; Z79.899 Other long term (current) drug therapy
CPT/HCPCS: 80307; 99284

== ENCOUNTER 2022-04-26 09:19 | Outpatient (REF) | payer OTHER, SELFPAY ==
[2022-04-26 09:32] LABS: MANUAL DIFF FLAG NO
[2022-04-26 09:49] LABS: Basophils Absolute Auto 0.1 X10*3/uL (0.0-0.2); Basophils Percent Auto 0.6 % (0-2); Eosinophils Absolute Auto 0.2 X10*3/uL (0.0-0.4); Eosinophils Percent Auto 2.3 % (0-4); Hematocrit 42.3 % (37.0-47.0); Hemoglobin 14.7 g/dl (12.0-16.0); Imm Gran Abs Auto 0.02 X10*3/uL (0.00-0.03); Imm Gran Pct Auto 0.3 % (0.0-0.4); Lymphocytes Absolute Auto 2.7 X10*3/uL (1.2-4.9); Lymphocytes Percent Auto 35.1 % (20-40); Mean Corpuscular HGB Conc 34.8 g/dl (31.0-35.0); Mean Corpuscular Hemoglobin 31.1 pg (27.0-33.0); Mean Corpuscular Volume 89.6 fL (80.0-98.0); Mean Platelet Volume 10.6 fL (9.4-12.3); Monocytes Absolute Auto 0.4 X10*3/uL (0.1-1.2); Monocytes Percent Auto 5.3 % (2-11); Neutrophils Absolute Auto 4.4 x10*3/uL (2.0-8.3); Neutrophils Percent Auto 56.4 % (45-73); Platelet Count 273 X10*3/uL (160-400); Red Blood Count 4.72 X10*6/uL (4.20-5.50); Red Cell Distribution Width 12.7 % (11.0-16.0); White Blood Count 7.8 X10*3/uL (4.8-10.8)
[2022-04-26 10:58] LABS: Alanine Aminotransferase 16 U/L (0-31); Alkaline Phosphatase 104 U/L (39-117); Anion Gap 16 (12-20); Aspartate Amino Transferase 16 U/L (5-31); Bilirubin Total 0.3 mg/dL (0.0-1.0); Blood Urea Nitrogen 16 mg/dL (9-16); Calcium 9.2 mg/dL (8.4-10.2); Carbon Dioxide 26 mmol/L (22-29); Chloride 106 mmol/L (96-108); Estimated Glomerular Filt Rate > 60; Glucose Random 96 mg/dL (60-115); Potassium 4.8 mmol/L (3.3-5.1); Sodium 143 mmol/L (135-145); Total Protein 6.9 g/dL (6.5-8.0)
== END 2022-04-26 09:20 | disposition home or self-care (01) ==
LOC: HO.LAB 09:19
PROVIDERS: PCP Physician Assistant; Visit Provider Nurse Practitioner Family
DX: N95.0 Postmenopausal bleeding (principal)
CPT/HCPCS: 36415; 80053; 85025

== ENCOUNTER 2022-05-04 08:22 | Outpatient (REF) | payer OTHER, SELFPAY ==
--- NOTE | ~2022-05-04 | US_ITS ---
EXAMINATION: MM DIAGNOSTIC DIGITAL BREAST TOMOSYNTHESIS, BILATERAL US DIAGNOSTIC ULTRASOUND BREAST, BILATERAL CLINICAL INFORMATION: Bilateral nipple pain for 2 weeks. No discharge or palpable abnormality. No erythema. Due for yearly. The lifetime risk of breast cancer based on the Tyrer-Cuzick Model is 7%. COMPARISON: Mammography: 03/17/2019, outside mammography 10/06/2013 ([facility]) TECHNIQUE: Digital breast tomosynthesis is performed in both the craniocaudal and mediolateral oblique views along with computer-aided detection (CAD). Synthesized 2D images are generated from the tomosynthesis. Ultrasound bilateral breasts is targeted to the retroareolar and periareolar regions using grayscale imaging and color Doppler without and with harmonics. FINDINGS: There are scattered areas of fibroglandular density (ACR BI-RADS breast composition Category b). Parenchymal pattern is similar to prior studies and there is no developing density or interval architectural abnormality or abnormal calcifications. No skin thickening or coarsening of the Clement's ligaments. Small circumscribed nodularity central and outer left breast are stable. Incidental small low right axillary tail node stable. No significant changes. Ultrasound demonstrates no cystic or solid mass, architectural abnormality, or focal duct ectasia. No skin thickening or edema tracking in soft tissue planes. No hyperemia. Results are discussed with the patient at time of visit. US/US breast LT limited IMPRESSION: 1. No mammographic evidence of malignancy or inflammatory changes. 2. Normal bilateral targeted breast ultrasound. ASSESSMENT: BI-RADS 2: Benign RECOMMENDATION: 1. Patient's bilateral mastodynia should be managed based on the clinical impression. 2. Otherwise, routine annual screening mammography. This patient's information was entered into a reminder system with a target due date for their next mammogram.
--- NOTE | ~2022-05-04 | US_ITS ---
EXAMINATION: MM DIAGNOSTIC DIGITAL BREAST TOMOSYNTHESIS, BILATERAL US DIAGNOSTIC ULTRASOUND BREAST, BILATERAL CLINICAL INFORMATION: Bilateral nipple pain for 2 weeks. No discharge or palpable abnormality. No erythema. Due for yearly. The lifetime risk of breast cancer based on the Tyrer-Cuzick Model is 7%. COMPARISON: Mammography: 03/17/2019, outside mammography 10/06/2013 ([facility]) TECHNIQUE: Digital breast tomosynthesis is performed in both the craniocaudal and mediolateral oblique views along with computer-aided detection (CAD). Synthesized 2D images are generated from the tomosynthesis. Ultrasound bilateral breasts is targeted to the retroareolar and periareolar regions using grayscale imaging and color Doppler without and with harmonics. FINDINGS: There are scattered areas of fibroglandular density (ACR BI-RADS breast composition Category b). Parenchymal pattern is similar to prior studies and there is no developing density or interval architectural abnormality or abnormal calcifications. No skin thickening or coarsening of the Clement's ligaments. Small circumscribed nodularity central and outer left breast are stable. Incidental small low right axillary tail node stable. No significant changes. Ultrasound demonstrates no cystic or solid mass, architectural abnormality, or focal duct ectasia. No skin thickening or edema tracking in soft tissue planes. No hyperemia. Results are discussed with the patient at time of visit. US/US breast RT limited IMPRESSION: 1. No mammographic evidence of malignancy or inflammatory changes. 2. Normal bilateral targeted breast ultrasound. ASSESSMENT: BI-RADS 2: Benign RECOMMENDATION: 1. Patient's bilateral mastodynia should be managed based on the clinical impression. 2. Otherwise, routine annual screening mammography. This patient's information was entered into a reminder system with a target due date for their next mammogram.
== END 2022-05-04 08:23 | disposition home or self-care (01) ==
LOC: HO.MAMMO 08:22
PROVIDERS: Visit Provider Nurse Practitioner Family
DX: N64.4 Mastodynia (principal)
CPT/HCPCS: 76642; 77062; 77066